=== PATIENT | female | born 1980 | race Caucasian/White ===

== ENCOUNTER 2017-10-26 05:06 | Day surgery (SDC) | payer MEDICARE ==
[2017-10-23 09:24] LABS: BASOPHILS 0.4 % (0-2); EOSINOPHILS 4.7 % (0-7); HEMATOCRIT 42.2 % (36.0-48.0); LYMPHOCYTES 31.3 % (15-50); MCH 28.9 pg (26.0-34.0); MCHC 33.2 g/dL (31.0-37.0); MCV 87.2 fL (80.0-100.0); MONOCYTES 6.5 % (2-11); NEUTROPHILS 57.1 % (40-80); PLATELET COUNT 268 10x3/uL (130-400); RBC 4.84 10x6/uL (4.00-5.40); RDW 13.4 % (11.5-14.5); WBC 8.5 10x3/uL (4.8-10.8)
[2017-10-23 09:48] LABS: AMORPHOUS SEDIMENT <1+ /lpf (NONE SEEN); APPEARANCE HAZY (CLEAR); BACTERIA FEW /hpf (NONE SEEN); BILIRUBIN NEGATIVE (NEGATIVE); COLOR YELLOW (YELLOW); GLUCOSE NEGATIVE (NEGATIVE); KETONE NEGATIVE (NEGATIVE); MUCUS <1+ /lpf (NONE SEEN); NITRITE NEGATIVE (NEGATIVE); PROTEIN NEGATIVE (NEGATIVE); RED CELLS - URINE 0-5 /hpf (0-5); SPECIFIC GRAVITY 1.015 (1.005-1.020); UROBILINOGEN NORMAL (NORMAL); WHITE CELLS - URINE 0-5 /hpf (0-5)
[~2017-10-26] VITALS: Ht 167.6 cm; Wt 83.0 kg
--- NOTE | ~2017-10-26 | OP ---
PATIENT NAME: LADAN ORTIZ MEDICAL RECORD: [id number] :78 LOCATION:D[facility] ADMISSION DATE: SURGEON: GARCÍA ROSAS MD DATE OF OPERATION: 10/26/2017 PREOPERATIVE DIAGNOSES: 1. Chronic pelvic pain. 2. Nocturia. POSTOPERATIVE DIAGNOSES: 1. Chronic pelvic pain. 2. Interstitial cystitis. PROCEDURES: 1. Exam under anesthesia. 2. Cystoscopy with hydrodistention. ATTENDING: García Rosas MD BI DATA ARCHITECT: Gracia Armenta. ANESTHESIOLOGIST: Dr. Wetzel. ANESTHETIC: General. FINDINGS: Vulva is within normal limits. Vaginal vault is unremarkable. Bimanual exam failed to demonstrate mass or irregularity. The cystoscopy is unremarkable with both ureteral orifices identified. After hydrodistention, petechiae seen in 3-4 quadrants. A few glomerulations are present and no evidence of Hunner's ulcers. SPECIMENS REMOVED: None applicable. FLUIDS: 500 cc of lactated Ringer's. URINE OUTPUT: Quantity sufficient cath prior to this procedure. ESTIMATED BLOOD LOSS: Minimal. COMPLICATIONS: None. INDICATIONS: The patient is a 37-year-old female with a history of endometriosis, hysterectomy and bilateral salpingo-oophorectomy. The patient reports voiding 10 times overnight and frequent urination throughout the day. The patient does have some urge symptoms without report of incontinence. The patient reports being treated for UTIs without evidence of infection on culture. UA is negative coming into this procedure. DESCRIPTION OF PROCEDURE: After informed consent was assured, the patient was taken to the operating room where anesthetic was obtained without difficulty. The patient was prepped and draped in usual sterile fashion. Using a 70-degree cystoscope, the urethra was cannulized and inspected. No fronds were noted at the UV junction. A quick survey of the bladder reveals unremarkable mucosa. Hydrodistention was completed at 80 cm. This was reduced and then reinstallation of the distention media reveals petechiae in 3-4 quadrants. OPERATIVE REPORT [id number] LADAN ORTIZ There are a few glomerulations present, no ulcerations. The distension media is now removed and 40,000 units of heparin and 10 cc of 1% lidocaine instilled into the bladder. Sponge, lap, needle counts correct times 2. TRANSINT:[id number] Voice Confirmation ID: [id number] DOCUMENT ID: [id number] GARCÍA ROSAS MD at 0912 CC: [id number] DICTATION DATE: 10/26/17 0801 PIPING DESIGN SPECIALIST: 10/26/17 1334 [facility] 10/26/17 [id number] [place] [address]
[~2017-10-26 05:06] MED LIST: CYCLOBENZAPRINE10 MG PO; ESTRACE1 MG PO; GABAPENTIN100 MG PO; KLONOPIN1 MG PO; METHADONE5 MG PO; TOPAMAX100 MG PO
[2017-10-26 06:13] VITALS: BP 86/57; Ht 167.6 cm; Wt 83.0 kg
== END 2017-10-26 10:10 | disposition home or self-care (01) ==
LOC: D.OPS 05:06 → D.PAN 07:30 → D.OPS 07:30
PROVIDERS: Obstetrics & Gynecology
DX: N30.10 Interstitial cystitis (chronic) without hematuria (principal); R35.1 Nocturia; Z01.812 Encounter for preprocedural laboratory examination

== ENCOUNTER → 2018-02-23 10:44 | Outpatient (CLI) | payer MEDICARE ==
[2017-10-26 06:13] VITALS: BMI 29.6
== END | disposition home or self-care (01) ==
LOC: D.MRI 02-17 11:00
DX: D32.0 Benign neoplasm of cerebral meninges (principal)

== ENCOUNTER 2019-06-24 12:25 | Emergency (ER) | payer MEDICARE ==
[~2019-06-24] VITALS: Ht 167.6 cm; Wt 85.5 kg
[2019-06-24 13:07] VITALS: Ht 167.6 cm; Wt 85.5 kg
[2019-06-24 18:05] VITALS: BP 142/83
== END 2019-06-24 18:12 | disposition home or self-care (01) ==
LOC: D.ER 12:25
DX: S39.012A Strain of muscle, fascia and tendon of lower back, initial encounter (principal); V89.2XXA Person injured in unspecified motor-vehicle accident, traffic, initial encounter; S16.1XXA Strain of muscle, fascia and tendon at neck level, initial encounter